=== PATIENT | female | born 1955 | race Caucasian/White ===

== ENCOUNTER 2020-03-28 14:18 | Emergency (ER) | payer MEDICARE, SELFPAY ==
--- NOTE | ~2020-03-28 | CT_ITS ---
EXAMINATION: CT abdomen pelvis wo con DATE: 03/28/2020 15:57 INDICATION: Right flank pain. Left kidney surgically resected post trauma. TECHNIQUE: Computed tomography (CT) of the abdomen and pelvis was performed without intravenous contr ast. The dose-length product was 224.33 mGy-cm. COMPARISON: None. FINDINGS: There is an 8 mm nodule left lower lobe. There are adjacent nodular densities in the left l ower lobe. There is lingular atelectasis. Heart size normal. No significant pleural or pericardial ef fusion. Mild atherosclerosis. No lymphadenopathy. The liver, spleen, pancreas, adrenal glands are unremarkabl e. Left kidney surgically absent. There are right renal parapelvic cysts. No renal/ureteral stones or hydronephrosis. Nonobstructive bowel gas pattern. There is mild distention of the gallbladder, possi ble mild gallbladder wall thickening with subtle infiltration of the pericholecystic fat. No definite gallstones. IMPRESSION: 1. Mild distention of the gallbladder with possible mild gallbladder wall thickening. Cannot exclude cholecystitis. Correlate clinically. 2: Cluster of left lower lobe nodules, largest measuring 8 mm. Recommend follow-up low dose CT chest in 3 months or pet/CT. Reviewed, dictated and finalized at location A. IMPRESSION: 1. Mild distention of the gallbladder with possible mild gallbladder wall thick ening. Cannot exclude cholecystitis. Correlate clinically. 2: Cluster of left lower lobe nodules, largest measuring 8 mm. Recommend follow -up low dose CT chest in 3 months or pet/CT.
--- NOTE | ~2020-03-28 | XR_ITS ---
XR abdomen/kub 1V 03/28/2020 16:02 INDICATION: Right-sided flank pain TECHNIQUE: KUB COMPARISON: None FINDINGS: Bowel gas pattern is normal. There is no evidence of free air, mass, organomegaly, ascites or obstruction. No abnormal calculi are seen. The bones appear intact. IMPRESSION: 1: No acute abdominal abnormality identified. Reviewed, dictated and finalized at location A.
[2020-03-28 14:40] VITALS: BP 145/92; PULSE 91; RESP 18; TEMP 37.1; O2SAT 100
--- NOTE | 2020-03-28 14:47 | PC.NURSE ---
When asked to locate pain she points to right side of her mid back/right flank area.
[2020-03-28 14:50] LABS: Add Urine Microscopic? YES; Appearance Urine Clear (Clear); Bilirubin Urine Negative (Negative); Blood Urine Negative (Negative); Color Urine Yellow (Yellow); Glucose Urine UA Negative (Negative); Ketones Urine Negative (Negative); Leukocyte Esterase Ur 1+ LEU/UL (Negative); Mucus Urine Rare /lpf; Nitrate Urine Negative (Negative); Protein Urine Negative (Negative); RBC Urine 0-2 /hpf (0-2); Specific Grav Ur 1.017 (1.001-1.035); Squamous Epithelial Cell Urine Few /hpf (Few); Urobilinogen Urine Negative mg/dL (<2.0)
[2020-03-28 14:59] LABS: Basophils Percent Auto 0.3 % (0.2-1.2); Eosinophils Absolute Auto 0.1 K/mm3 (0-0.3); Eosinophils Percent Auto 1.7 % (0-4.4); Hematocrit 43.1 % (37.0-47.0); Hemoglobin 14.7 g/dL (12.0-15.0); Immature Granulocyte Absolute 0.01 K/mm3 (0.00-0.031); Immature Granulocyte Percent A 0.2 % (0-0.5); Lymphocytes Absolute Auto 1.34 K/mm3 (0.9-3.2); Lymphocytes Percent Auto 22.9 % (18.3-44.2); Mean Corpuscular HGB Conc 34.1 g/dl (32-36); Mean Corpuscular Hemoglobin 31.5 pg (26-34); Mean Corpuscular Volume 92.5 fl (80-100); Mean Platelet Volume 9.8 fl (7.4-10.4); Monocytes Absolute Auto 0.5 K/mm3 (0.1-0.6); Monocytes Percent Auto 8.9 % (2.6-8.5); Neutrophils Absolute Auto 3.9 K/mm3 (1.3-6.7); Platelet Count Result 211 k/mm3 (150-375); Red Blood Count 4.66 M/mm3 (4.2-5.4); White Blood Count 5.8 K/mm3 (4.5-10.0)
[2020-03-28 15:11] LABS: Blood Urea Nitrogen 12 mg/dL (7-17); Calcium 8.8 mg/dL (8.4-10.2); Carbon Dioxide 25 mmol/L (22-30); Chloride 104 mmol/L (98-107); Estimated CRCL calculation 55 ml/min; Estimated Glomerular Filt Rate > 60; Glucose 134 mg/dL (65-105); Potassium 4.1 mmol/L (3.4-5.0); Sodium 138 mmol/L (137-145)
--- NOTE | 2020-03-28 15:52 | ED.BACK ---
HPI - Back Pain/Injury General Chief Complaint: Back Pain/Injury Stated Complaint: Middle Back Pain Time Seen by Provider: 03/28/20 15:27 Source: patient and family Mode of arrival: ambulatory Limitations: no limitations History of Present Illness HPI Narrative: Patient is a 64-year-old female who presents with right CVA back pain noting aching pain for the last 5 days denies injury or trauma radiation or other complaints denies similar occurrence patient had ciprofloxacin Juan Carlos on Monday by primary care and notes no improvement in the pain did note she had some burning with urination patient denies fever chills nausea vomiting Related Data Allergies Allergy/AdvReac Type Severity Reaction Status Date / Time iodine Allergy Verified 08/06/13 08:58 Review of Systems Review of Systems: All systems reviewed & are unremarkable except as noted in HPI and below PMFSH Surgical History Surgical History (Updated 03/28/20 @ 15:54 by Chaparro Torre PA-C) History of bowel resection History of nephrectomy Social History Social History (Updated 03/28/20 @ 15:54 by Chaparro Torre PA-C) Smoking status: Current every day smoker Exam Narrative: Exam Narrative: GENERAL: Well-appearing, well-nourished, and in no acute distress. HEAD: Normocephalic, atraumatic. EYES: PERRLA and EOMI. ENT: Nares clear, no rhinorrhea or epistaxis. Mucous membranes moist. Oropharynx without tonsillar hypertrophy exudate or other lesions. NECK: Supple. No adenopathy or masses. CHEST: Clear to auscultation. No respiratory distress. No wheezes rales or rhonchi HEART: Regular rate and rhythm. No murmur heard. Normal peripheral pulses. ABDOMEN: Soft, nontender, nondistended EXTREMITIES: Normal range of motion. No edema. Right CVA tenderness SKIN: Warm, dry, no rash. NEURO: No focal deficits. Alert and oriented x3. PSYCH: Normal mood and affect. Course Course Emergency Course: Patient in the room is a 64-year-old presented with back pain was given medications with improvement patient aware of findings agreeing to follow with primary care. Patient also given reasons to return Vital Signs Vital signs: Vital Signs Temperature 98.7 F 03/28/20 14:40 Pulse Rate 91 03/28/20 14:40 Respiratory Rate 18 03/28/20 14:40 Blood Pressure 145/92 H 03/28/20 14:40 Pulse Oximetry 100 03/28/20 14:40 Temperature 98.7 F 03/28/20 14:40 Pulse Rate 91 03/28/20 14:40 Respiratory Rate 18 03/28/20 14:40 Blood Pressure 145/92 H 03/28/20 14:40 Pulse Oximetry 100 03/28/20 14:40 MDM - Back Pain/Injury MDM Narrative Medical decision making narrative: Patient in the room in no distress was hydrated and given medications for pain patient with no abdominal tenderness no relation to food likely not her gallbladder but was given instructions on what to watch for in case it is her gallbladder patient without any kidney stone or URI symptoms seen on exam today patient will be discharged home with medication for back provided with reasons to return and is felt appropriate for outpatient reevaluation patient and family agree with this plan. Patients pain is positional in nature and localized to back without signs of cord compression or cauda equina based on neurological exam, skeletal exam and history. No fever or other significant factors to suggest osteomyelitis or spinal epidural abscess. Lab Data Result diagrams: 03/28/20 14:52 03/28/20 14:52 Labs: Lab Results 03/28/20 03/28/20 03/28/20 Range/Units 14:42 14:52 14:52 WBC 5.8 (4.5-10.0) K/mm3 RBC 4.66 (4.2-5.4) M/mm3 Hgb 14.7 (12.0-15.0) g/dL Hct 43.1 (37.0-47.0) % MCV 92.5 (80-100) fl MCH 31.5 (26-34) pg MCHC 34.1 (32-36) g/dl RDW 12.0 (11.5-14.5) % Plt Count 211 (150-375) k/mm3 MPV 9.8 (7.4-10.4) fl Immature Gran % (Auto) 0.2 (0-0.5) % Neut % (Auto) 66.0 (45.5-73.1) % Lymph % (Auto) 22
[2020-03-28] MEDS: SODIUM CHLORIDE 0.9% IV 1,000 ML 999 ML IV CONT (16:08)
[2020-03-28] MEDS: FAMOTIDINE 20 MG/2 ML VIAL IV PUSH (16:08)
[2020-03-28 16:34] LABS: Alanine Aminotransferase 16 U/L (4-35); Albumin Level 4.1 g/dL (3.5-5.1); Alkaline Phosphatase 61 U/L (38-126); Aspartate Amino Transferase 25 U/L (14-36); Bilirubin,Total 0.2 mg/dL (0.2-1.3); Lipase 81 U/L (23-300)
[2020-03-28 17:27] VITALS: BP 122/80; PULSE 78; RESP 20; O2SAT 99
[2020-03-28 18:29] VITALS: BP 150/83; PULSE 97; RESP 18; O2SAT 99
== END 2020-03-28 18:31 | disposition home or self-care (01) ==
PROVIDERS: Emergency Medicine Emergency Medical Services; Emergency Provider Emergency Medicine; PCP Family Medicine Adolescent Medicine
DX: M54.5 Low back pain (principal); Z90.5 Acquired absence of kidney; Z90.49 Acquired absence of other specified parts of digestive tract; F17.200 Nicotine dependence, unspecified, uncomplicated; R91.8 Other nonspecific abnormal finding of lung field; R93.2 Abnormal findings on diagnostic imaging of liver and biliary tract
CPT/HCPCS: 36415; 74018; 74176; 80048; 80076; 81001; 83690; 85025; 96361; 96365; 96375; 99284; J0131; J3360; J7030

== ENCOUNTER 2020-09-22 15:50 | Outpatient (CLI) | payer MEDICARE, SELFPAY ==
--- NOTE | ~2020-09-22 | CT_ITS ---
EXAMINATION:CT chest wo con DATE: 09/22/2020 16:13 INDICATION: Left lower lobe pulmonary nodule. TECHNIQUE: Computed tomography (CT) of the chest was performed without intravenous contrast. Automate d exposure control and iterative reconstruction technique were employed. The dose-length product (DLP ) was 88.30 mGy-cm. COMPARISON: CT abdomen and pelvis 03/28/2020 FINDINGS: There is a 7 mm nodule in right middle lobe not included on the prior scan. There are multi ple nodules in left lung lower lobe measuring up to 6 mm with interval improvement in some of the nod ules. There are clusters of tree-in-bud opacities in left lower lobe. No pleural effusion. The heart size is normal. No pericardial effusion. The left kidney is absent. There is severe thoracic and cerv ical spondylosis. IMPRESSION: 1. Pulmonary nodules measuring up to 7 mm with improvement in some of the nodules, probably benign. N oncontrast low-dose chest CT is recommended in 6 months. Reviewed, dictated and finalized at location A. 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 Pulmonary nodules measuring up to 7 mm with improvement in some of the nodul es, probably benign. Noncontrast low-dose chest CT is recommended in 6 months.
== END 2020-09-22 15:51 | disposition home or self-care (01) ==
PROVIDERS: PCP Family Medicine Adolescent Medicine; Visit Provider Physician Assistant
DX: R91.8 Other nonspecific abnormal finding of lung field (principal)
CPT/HCPCS: 71250

== ENCOUNTER 2021-03-02 16:08 | Outpatient (CLI) | payer MEDICARE, SELFPAY ==
--- NOTE | ~2021-03-02 | CT_ITS ---
EXAMINATION: CT diagnostic chest wo con DATE: 03/02/2021 16:41 INDICATION: Cough. Left lower lobe nodule. TECHNIQUE: Computed tomography (CT) of the chest was performed without intravenous contrast. The dose -length product was 210.59 mGy-cm. Automated exposure control and iterative reconstruction technique were employed. COMPARISON: CT dated 09/22/2020 FINDINGS: Heart size is normal. Small pericardial effusion. No significant pleural effusion. No thora cic lymphadenopathy. The upper abdomen is unremarkable. Stable 7 mm right middle lobe nodule. There a re a few scattered left lower lobe nodules measuring up to 6 mm some of which have a waxing and wanin g appearance. There are small reticulonodular densities with tree-in-bud configuration in the right l ower lobe which are unchanged. IMPRESSION: 1. No significant change to scattered bilateral pulmonary nodules, most likely infectious/inflammator y. Continued six-month follow-up low dose CT chest recommended. Reviewed, dictated and finalized at location A. IMPRESSION: 1. No significant change to scattered bilateral pulmonary nodules, most likely infectious/inflammatory. Continued six-month follow-up low dose CT chest recomm ended.
== END 2021-03-02 16:09 | disposition home or self-care (01) ==
PROVIDERS: PCP Family Medicine Adolescent Medicine; Visit Provider Family Medicine Adolescent Medicine
DX: R91.1 Solitary pulmonary nodule (principal)
CPT/HCPCS: 71250

== ENCOUNTER → 2021-06-22 14:08 | Outpatient (CLI) | payer MEDICARE, SELFPAY ==
--- NOTE | ~2021-06-22 | MM_ITS ---
EXAMINATION: MM screening tony BI w [facility] HISTORY: Screening mammogram, family history of breast cancer in her mother. TECHNIQUE: Craniocaudal and mediolateral oblique 3-D tomosynthesis images were obtained and synthetic 2-D images were generated. CAD analysis was submitted and interpreted. COMPARISON: 12/19/2017, 11/29/2016, 08/14/2015 BREAST PARENCHYMAL COMPOSITION: There are scattered areas of fibroglandular density. FINDINGS: There is no evidence of suspicious mass, calcification, or architectural distortion to sugg est malignancy in either breast. There has been no suspicious interval change. IMPRESSION: 1. No mammographic evidence of malignancy. 2. Recommend routine screening mammography in one year. BI-RADS Category 1: Negative Reviewed, dictated and finalized at location A.
== END ==
PROVIDERS: PCP Family Medicine Adolescent Medicine; Visit Provider Family Medicine Adolescent Medicine
DX: Z12.31 Encounter for screening mammogram for malignant neoplasm of breast (principal)
CPT/HCPCS: 77063; 77067

== ENCOUNTER → 2021-12-08 11:29 | Outpatient (CLI) | payer MEDICARE, SELFPAY ==
--- NOTE | ~2021-12-08 | CT_ITS ---
EXAMINATION: CT diagnostic chest wo con DATE: 12/08/2021 11:54 INDICATION: Lung nodule TECHNIQUE: Computed tomography (CT) of the chest was performed without intravenous contrast. The dose -length product (DLP) was 309.75 mGy-cm. Automated exposure control and iterative reconstruction tech [employer] were employed. COMPARISON: 03/02/2021, 09/22/2020 FINDINGS: There are scattered pulmonary nodules throughout the lungs which measure up to 3 mm. Previo usly described nodules measuring up to 7 mm have resolved. There is a chronic cluster of nodules in t he left lower lobe without significant change. No new pulmonary nodules are identified. There is no p leural effusion or pneumothorax. The lungs are free of acute opacities. No pathologically enlarged th oracic lymph nodes are identified. The heart size is normal. There is severe thoracic spondylosis. IMPRESSION: 1. Small chronic pulmonary nodules and clustered nodules of the left lower lobe with interval resolut ion of the largest pulmonary nodules, most consistent with old granulomatous disease and infection/in flammation. Reviewed, dictated and finalized at location B. IMPRESSION: 1. Small chronic pulmonary nodules and clustered nodules of the left lower lobe with interval resolution of the largest pulmonary nodules, most consistent wit h old granulomatous disease and infection/inflammation.
== END ==
PROVIDERS: Visit Provider Family Medicine Adolescent Medicine
DX: R91.1 Solitary pulmonary nodule (principal)
CPT/HCPCS: 71250

== ENCOUNTER 2022-05-25 00:29 | Day surgery (SDC) | payer MEDICARE, SELFPAY ==
[2022-04-26 14:06] VITALS: BMI 30.1
--- NOTE | 2022-05-02 08:17 | PC.NURSE ---
pt called in today to report that she is sick, has not taken covid test but is experiencing heavy cold symptoms. instructed pt that she would need to be covid negative if she plans on coming in for procedure. she is going to call dr ferro office and reschedule.
--- NOTE | 2022-05-11 13:36 | PC.NURSE ---
Updated patient with new times regarding rescheduled colonoscopy procedure. Patient verbalizes understanding regarding prep instructions. No new changes to medical history or medications since last phone call.
--- NOTE | 2022-05-24 16:39 | PM.HPGS ---
History of Present Illness History of Present Illness Consent: Risks, benefits, and alternatives have been discussed and questions answered. Patient agrees to proceed with procedure. Chief complaint: neoplasm screening Narrative: Lauren Asencio is a 66 year old female was referred for colon cancer screening. Review of Systems Review of Systems: All systems reviewed & are unremarkable except as noted in HPI and below PMFSH Surgical History Surgical History H/O section x2 H/O neck surgery History of bowel resection History of nephrectomy Family History Family History Father COPD (chronic obstructive pulmonary disease) Diabetes mellitus Heart disease Gallbladder & bile duct stone, acute cholecystitis and obstruction Mother Breast cancer Heart disease Hypertension Other Breast cancer Grandparent Diabetes mellitus Social History Social History Years smoked: 15 Smoking status: Former smoker Tobacco type: cigarettes Second hand tobacco smoke exposure: No Smoking end date: 10/19/89 Alcohol intake: current Drinks per week: 3 Substance use: never Substance use type: does not use Living arrangements: with family Gender identity (if verbalized by the patient): Female Sexual Orientation (if Verbalized by the Patient): Straight or Heterosexual Spiritual care concerns: No Agree to blood products: Yes Meds Home Medications and Allergies Home Medications Medication Instructions Recorded Confirmed Type acetaminophen 650 mg 650 mg PO Q8H PRN fever or pain 03/28/20 04/26/22 Rx tablet,extended release (Tylenol #10 tabs Arthritis Pain) metaxalone 800 mg tablet (Skelaxin) 800 mg PO QID PRN muscle pain #10 03/28/20 04/26/22 Rx tabs scopolamine base 1 mg over 3 days 1 patch transdermal Q3D PRN motion 11/16/21 04/26/22 Rx transdermal patch sickness #2 ea doxycycline hyclate 100 mg capsule 100 mg PO DAILY 04/26/22 04/26/22 History Allergies Allergy/AdvReac Type Severity Reaction Status Date / Time iodine Allergy Severe Rash Verified 05/25/22 08:32 Exam Const: General: alert Orientation/consciousness: patient oriented x3 Resp: Auscultation: clear to auscultation bilaterally Cardio: Rhythm: regular rhythm GI: GI Palp: Yes Soft to palpation and No Tenderness to palpation present (GI) Neuro: General: patient oriented x3 Assessment and Plan Assessment and plan (1) Colon cancer screening: Code(s): Z12.11 - Encounter for screening for malignant neoplasm of colon Status: Acute Assessment and Plan: Colonoscopy with possible biopsy or polypectomy or cautery or injection of substances.
[2022-05-25 08:33] VITALS: BP 177/99; PULSE 72; RESP 18; TEMP 36; O2SAT 100; BMI 30.7
[2022-05-25] MEDS: LACTATED RINGERS 1,000 ML 150 ML IV CONT (08:51)
--- NOTE | 2022-05-25 09:03 | WPDANESEPPF ---
Anes - Initial Pre Proc Eval Procedure: Operation Date: 05/25/22 10:00 Proposed Procedures p Screening Colonoscopy - Horacio Farris MD Date/Time: 05/25/22 09:03 Surgeon: Horacio Farris MD Pre Op Diagnosis: neoplasm screening Patient Data Age: 66 Gender: F Height: 1.6 m Weight: 78.5 kg Last Vital Signs Temp 96.8 F L 05/25/22 08:33 Pulse 72 05/25/22 08:33 Resp 18 05/25/22 08:33 BP 177/99 H 05/25/22 08:33 Pulse Ox 100 05/25/22 08:33 O2 Del Method Room Air 05/25/22 08:33 Allergies Allergy/AdvReac Type Severity Reaction Status Date / Time iodine Allergy Severe Rash Verified 05/25/22 08:32 Home Medications Medication Instructions Recorded Confirmed Type acetaminophen 650 mg 650 mg PO Q8H PRN fever or pain 03/28/20 04/26/22 Rx tablet,extended release (Tylenol #10 tabs Arthritis Pain) metaxalone 800 mg tablet (Skelaxin) 800 mg PO QID PRN muscle pain #10 03/28/20 04/26/22 Rx tabs scopolamine base 1 mg over 3 days 1 patch transdermal Q3D PRN motion 11/16/21 04/26/22 Rx transdermal patch sickness #2 ea doxycycline hyclate 100 mg capsule 100 mg PO DAILY 04/26/22 04/26/22 History Patient hx anesthesia problems: post op nausea/vomiting Family hx anesthesia problems: none Results Review: All pre-operative results and documents have been reviewed as part of the pre-operative evaluation. [facility] Surgical History Surgical History (Updated 11/16/21 @ 13:39 by Steve Hill MA) H/O section x2 H/O neck surgery History of bowel resection History of nephrectomy Family History Family History (Updated 11/16/21 @ 13:42 by Steve Hill MA) Father COPD (chronic obstructive pulmonary disease) Diabetes mellitus Heart disease Gallbladder & bile duct stone, acute cholecystitis and obstruction Mother Breast cancer Heart disease Hypertension Other Breast cancer Grandparent Diabetes mellitus Social History Social History (Updated 11/16/21 @ 13:43 by Steve Hill MA) Years smoked: 15 Smoking status: Former smoker Tobacco type: cigarettes Second hand tobacco smoke exposure: No Smoking end date: 10/19/89 Alcohol intake: current Drinks per week: 3 Substance use: never Substance use type: does not use Living arrangements: with family Gender identity (if verbalized by the patient): Female Sexual Orientation (if Verbalized by the Patient): Straight or Heterosexual Spiritual care concerns: No Agree to blood products: Yes Anes - Eval Final PreProcedure Day of Procedure 05/25/22 09:03 Patient weight: obese Heart: regular rate and rhythm Lungs: clear to auscultation Airway: Mallampati scale class II Neurological: alert and oriented Last oral intake: >/= 8 hours ASA classification: II Emergent: no Anesthetic plan: proceed Anesthesia type and monitoring: general GIVS and standard monitoring Results Review: All pre-operative results and documents have been reviewed as part of the pre-operative evaluation. Informed Consent: The patient's anesthetic plan and its attendant risks and benefits were discussed with the patient/family/POA. Questions were solicited and answers provided to the satisfaction of the patient/family/POA.
[2022-05-25 09:54] VITALS: BP 83/65; PULSE 68; RESP 17; O2SAT 100
[2022-05-25 10:04] VITALS: BP 132/79; PULSE 60; RESP 17; O2SAT 96
[2022-05-25 10:14] VITALS: BP 113/67; PULSE 62; RESP 17; O2SAT 100
== END 2022-05-25 10:27 | disposition home or self-care (01) ==
PROVIDERS: PCP Family Medicine Adolescent Medicine; Visit Provider Internal Medicine Gastroenterology
PROC: 0DJD8ZZ Inspection of Lower Intestinal Tract, Via Natural or Artificial Opening Endoscopic (ICD-10-PCS; CPT 45378; principal; 2022-05-25 10:00)
DX: Z12.11 Encounter for screening for malignant neoplasm of colon (principal); K64.8 Other hemorrhoids; Z90.49 Acquired absence of other specified parts of digestive tract; Z90.5 Acquired absence of kidney; Z87.891 Personal history of nicotine dependence
CPT/HCPCS: G0121; J2704; J7120

== ENCOUNTER → 2023-10-17 07:14 | Outpatient (CLI) | payer MEDICARE, SELFPAY ==
--- NOTE | ~2023-10-17 | MM_ITS ---
EXAMINATION: MM screening tony BI w [facility] HISTORY: Screening TECHNIQUE: Craniocaudal and mediolateral oblique 3-D tomosynthesis images were obtained and synthetic 2-D images were generated. CAD analysis was submitted and interpreted. COMPARISON: Comparison to multiple prior studies sequentially, with oldest reviewed study dated 07/20. BREAST PARENCHYMAL COMPOSITION: There are scattered areas of fibroglandular density. FINDINGS: There is no evidence of suspicious mass, calcification, or architectural distortion to sugg est malignancy in either breast. There has been no suspicious interval change. IMPRESSION: 1. No mammographic evidence of malignancy. 2. Recommend routine screening mammography in one year. BI-RADS Category 1: Negative Reviewed, dictated and finalized at location A. [employer]
== END ==
PROVIDERS: PCP Family Medicine Adolescent Medicine; Visit Provider Family Medicine Adolescent Medicine
DX: Z12.31 Encounter for screening mammogram for malignant neoplasm of breast (principal)
CPT/HCPCS: 77063; 77067

== ENCOUNTER 2024-02-01 13:13 | Outpatient (CLI) | payer MEDICARE, SELFPAY | END 2024-02-01 13:14 | disposition home or self-care (01) | LOC: ANHAUDIO 13:14 | PROVIDERS: PCP Family Medicine Adolescent Medicine; Visit Provider Otolaryngology | DX: H93.11 Tinnitus, right ear (principal); H90.3 Sensorineural hearing loss, bilateral | CPT/HCPCS: 92557; 92567 ==